=== PATIENT | female | born 1985 | race Hispanic/Latino ===

== ENCOUNTER 2023-10-13 11:19 | Emergency (ER) | payer OTHER ==
[~2023-10-13] VITALS: Ht 157.5 cm; Wt 64.4 kg
[2023-10-13] MEDS: METOCLOPRAMIDE 10 MG/2 ML VIAL IVP ONE (13:38)
[2023-10-13] MEDS: FAMOTIDINE 20MG VIAL IV ONE (13:41)
[2023-10-13 13:42] LABS: HEMATOCRIT 34.7 % (36-48); MEAN CORPUSCULAR HEMOGLOBIN 27.8 pg (27.0-33.0); MEAN CORPUSCULAR HGB CONC 33.4 g/dL (32.0-36.0); MEAN CORPUSCULAR VOLUME 83.2 fL (79-99); RED BLOOD CELL COUNT(AUTO) 4.17 MIL/uL (4.00-5.50); RED CELL DISTRIBUTION WIDTH 14.2 % (11.0-15.5); WHITE BLOOD COUNT (AUTO) 6.4 K/uL (4.8-10.8)
[2023-10-13 13:48] LABS: APPEARANCE,URINE CLOUDY (CLEAR); BILIRUBIN,URINE NEGATIVE (NEGATIVE); COLOR,URINE LIGHT-YELLOW (YELLOW); GLUCOSE, URINE (UA) NEGATIVE (NEGATIVE); KETONES,URINE NEGATIVE (NEGATIVE); LEUKOCYTE ESTERASE ,URINE 500 Leu/uL (NEGATIVE); NITRATE,URINE NEGATIVE (NEGATIVE); OCCULT BLOOD,URINE MODERATE (NEGATIVE); PROTEIN,URINE NEGATIVE (NEGATIVE); UROBILINOGEN,URINE 0.2 mg/dL (0.2-1.0)
[2023-10-13 13:51] LABS: CREATININE 0.7 mg/dL (0.5-1.5); POTASSIUM 3.6 mmol/L (3.5-5.1)
[2023-10-13] MEDS ORDERED: KETOROLAC 15MG/ML VIAL (15MG/ML) ONE (14:00)
[2023-10-13 14:05] LABS: SARS-CoV-2, RNA, NAAT NEGATIVE SARS CoV-2 (NEGATIVE)
[2023-10-13 14:09] LABS: INFLUENZA TYPE A Negative For Type A (NEGATIVE); INFLUENZA TYPE B Negative For Type B (NEGATIVE)
[2023-10-13] MEDS: KETOROLAC 30MG VIAL (30MG/ML) IVP ONE (14:10)
[2023-10-13 14:27] LABS: ADD UA MICROSCOPIC YES
[2023-10-13 14:30] LABS: BACTERIA,URINE FEW /HPF (None Seen); MUCUS,URINE RARE LPF (None Seen); OTHER CASTS, URINE 5 /LPF (None Seen); SQUAMOUS EPITHELIAL CELL,UR FEW /HPF (0-2); UNCLASSIFIED CRYSTAL 12 /HPF (None Seen); YEAST,URINE BUDDING RARE /HPF (None Seen)
[2023-10-13] MEDS ORDERED: PHEN-847 PO (14:43)
[2023-10-13] MEDS ORDERED: CEPH500B PO (14:43)
[2023-10-13] MEDS ORDERED: METO-296 PO (14:43)
[2023-10-13] MEDS ORDERED: PHENAZOPYRIDINE HCL 200 MG TABLET PO ONE (15:00)
[2023-10-13] MEDS ORDERED: CEFTRIAXONE 2GM VIAL IVPB ONE (15:00)
[2023-10-13 15:56] VITALS: BP 122/78; PULSE 77; RESP 18; O2SAT 98
== END 2023-10-13 16:00 | disposition home or self-care (01) ==
LOC: EDH 11:19
DX: N39.0 Urinary tract infection, site not specified (principal); G44.209 Tension-type headache, unspecified, not intractable; G43.909 Migraine, unspecified, not intractable, without status migrainosus; Z20.822 Contact with and (suspected) exposure to COVID-19
CPT/HCPCS: 99285; 96374; 70450; 96375; 87635; 80048; 85027; 87088; 87804 ×2; 81001; 36415; J3490; J2765; J1885

== ENCOUNTER 2025-01-22 07:08 | Emergency (ER) | payer OTHER ==
[~2025-01-22] VITALS: Ht 157.5 cm; Wt 67.1 kg
[~2025-01-22 07:08] MED LIST: CEPH500B PO; METO-296 PO; PHEN-847 PO
--- NOTE | 2025-01-22 07:25 | NUR ---
PENDING TEST RESULTS FOR CT EXAM.
[2025-01-22 07:47] LABS: BASOPHILS # (AUTO) 0.03 K/uL (0.00-0.20); BASOPHILS % (AUTO) 0.4 % (0.0-5.0); EOSINOPHILS # (AUTO) 0.09 K/uL (0.00-0.70); EOSINOPHILS % (AUTO) 1.2 % (0.0-8.0); HEMATOCRIT 32.8 % (36-48); IMMATURE GRANULOCYTE ABSOLUTE 0.02 K/uL (0-1); LYMPHOCYTES # (AUTO) 4.2 K/uL (1.0-4.8); LYMPHOCYTES % (AUTO) 57.4 % (21.0-51.0); MEAN CORPUSCULAR HEMOGLOBIN 26.8 pg (27.0-33.0); MEAN CORPUSCULAR HGB CONC 33.5 g/dL (32.0-36.0); MONOCYTES # (AUTO) 0.5 K/uL (0.1-1.0); MONOCYTES % (AUTO) 7.4 % (3.0-13.0); NEUTROPHILS # (AUTO) 2.4 K/uL (1.8-7.7); NEUTROPHILS % (AUTO) 33.3 % (40.0-77.0); PLATELET COUNT (AUTO) 266 K/uL (130-400); WHITE BLOOD COUNT (AUTO) 7.3 K/uL (4.8-10.8)
--- NOTE | 2025-01-22 07:49 | ERN ---
General Chief Complaint: Seizure Stated Complaint: SYNCOPE Time Seen by : 07:12 History of Present Illness Initial Comments 39-year-old female brought in by family from home for seizure-like activity. According to the patient, she was in her normal state of health. She is speaking with the daughter and she felt faint. The family reports that she rolled her eyes back and she started shaking. It lasted about 10 seconds. Her arms and legs were shaking and stiff. She did not regain consciousness. She had another episode lasting about 10 seconds of shaking. Afterwards the family reports that she was confused. The patient does not remember any of the event. She denies any chest pains or palpitations prior. She does report a history of syncope in the past. No seizure history. She denies any drug or alcohol abuse. She denies any recent head trauma. She reports she has a headache over the last day or so. She continues with a headache now. She does report she took an [id number] sleep supplement which she has taken before in the past without side effects. Allergies: Coded Allergies: No Known Allergies (Unverified Allergy, Unknown, 10/13/23) Home Meds Active Scripts Metoclopramide HCl (Reglan) 10 Mg Tablet, 10 MG PO QIDP PRN for HEADACHE, #40 TAB 2 Refills Prov:GAMALIEL FLORES Sr., MD 10/13/23 Phenazopyridine HCl (Pyridium) 200 Mg Tab, 100 MG PO TIDPC, #5 TAB 0 Refills TAKE WITH FOOD TO PREVENT STOMACH UPSET. Prov:GAMALIEL FLORES Sr., MD 10/13/23 Cephalexin Monohydrate (Keflex) 500 Mg Cap, 500 MG PO QID for 10 Days, #40 CAP 0 Refills Prov:GAMALIEL FLORES Sr., MD 10/13/23 Past Medical History Past Medical History: No Pertinent History, Migraines Past Surgical History: Other Surgical History Other: BREAST IMPLANTS AND TUMMY TUCK Female( History) LMP: January 19, 2025 ROS Dictation CONSTITUTIONAL: No chills, no fever, no weakness, no diaphoresis, no malaise. HEAD/FACE: No signs of trauma. EENT: No eye pain, no blurred vision, no tearing, no double vision, no ear pain, no ear discharge, no nose pain, no nasal congestion, no throat pain, no throat swelling, no mouth pain. RESPIRATORY: No cough, no orthopnea, no SOB, no stridor, no wheezing. CARDIOVASCULAR: No chest pain, no edema, no palpitations, no syncope. GASTROINTESTINAL/ABDOMINAL: No abdominal pain, no constipation, no diarrhea, no nausea, no vomiting. GENITOURINARY: No abnormal discharge, no dysuria, no frequent urination, no hematuria. No complaints of pain in the genitals. MUSCULOSKELETAL: No back pain, no gout, no joint pain, no joint swelling, no muscle pain, no muscle stiffness, no neck pain. INTEGUMENTARY: No change in color, no change in hair/nails, no dryness, no lesion, no lumps, no rash. NEUROLOGICAL/PSYCH: Headache and seizure-like activity HEMATOLOGIC/LYMPHATIC: Not anemic, no history of blood clots, no apparent bleeding, no bruising, glands not swollen. All Systems Negative, Except as Noted. Physical Exam Physical Exam Dictation VITAL SIGNS: Reviewed. GENERAL APPEARANCE: Alert, oriented x3, no acute distress. HEAD AND FACE: Non-traumatic. EYES: PERRL, pink conjunctivas, eyelid no trauma, anterior chamber clear. EARS: Pinnas intact and no signs of trauma or erythema. Ear canals clear and no discharge. TMs no erythema. NOSE: No discharge, no bleeding. OROPHARYNX: Mouth normal, teeth no caries, tongue pink. Pharynx clear, no erythema. Tonsils no exudates, no abscesses noted. Mucous membrane moist. NECK: Supple, non-tender, no thyromegaly, no masses, no JVD, no bruits. BREAST: Deferred. CHEST: No tenderness, no crepitus, no paradoxical movement, no retractions. LUNGS: Clear, well-ventilated, symmetric, no rales, no wheezing, no rhonchi, no stridor, good breath sounds bilaterally. HEART: Regular rate, regular rhythm, no murmur, no gallops. VASCULAR: No peripheral edema. ABDOMEN: Soft, positive bowel sounds, nondistended, no guarding, nontender, no rebound, no masses no hepatomegaly, no splenomegaly, no Porras's sign, no hernias. RECTAL: Deferred. GENITAL: Deferred. NEUROLOGICAL: Normal speech, gross motor function intact, gross sensory function intact. MUSCULOSKELETAL: Neck nontender, full range of motion, back nontender, full range of motion. EXTREMITIES: Nontender, full range of motion. SKIN: Color pink, dry, no turgor, no rash, no lacerations, no abrasions, no contusions. LYMPHATICS: Deferred. Results Laboratory and Microbiology Lab and Micro Result Laboratory Tests Test 01/22/25 07:35 01/22/25 09:04 White Blood Count 7.3 K/uL (4.8-10.8) Red Blood Count 4.10 MIL/uL (4.00-5.50) Hemoglobin 11.0 g/dL (12.0-16.0) L Hematocrit 32.8 % (36-48) L Mean Corpuscular Volume 80.0 fL (79-99) Mean Corpuscular Hemoglobin 26.8 pg (27.0-33.0) L Mean Corpuscular Hemoglobin Concent 33.5 g/dL (32.0-36.0) Red Cell Distribution Width 16.0 % (11.0-15.5) H Platelet Count 266 K/uL (130-400) Mean Platelet Volume 10.1 fL (7.5-10.5) Immature Granulocyte % (Auto) 0.3 % (0-1) Neutrophils (%) (Auto) 33.3 % (40.0-77.0) L Lymphocytes (%) (Auto) 57.4 % (21.0-51.0) H Monocytes (%) (Auto) 7.4 % (3.0-13.0) Eosinophils (%) (Auto) 1.2 % (0.0-8.0) Basophils (%) (Auto) 0.4 % (0.0-5.0) Neutrophils # (Auto) 2.4 K/uL (1.8-7.7) Lymphocytes # (Auto) 4.2 K/uL (1.0-4.8) Monocytes # (Auto) 0.5 K/uL (0.1-1.0) Eosinophils # (Auto) 0.09 K/uL (0.00-0.70) Basophils # (Auto) 0.03 K/uL (0.00-0.20) Absolute Immature Granulocyte (auto 0.02 K/uL (0-1) Nucleated Red Blood Cells 0.0 % (0.0-0.19) Sodium Level 139 mmol/L (136-145) Potassium Level 3.3 mmol/L (3.5-5.1) L Chloride Level 104 mmol/L (101-111) Carbon Dioxide Level 25 mmol/L (21-32) Blood Urea Nitrogen 11 mg/dL (7-18) Creatinine 0.7 mg/dL (0.5-1.0) Glomerular Filtration Rate Calc 113 mL/min (>90) Random Glucose 105 mg/dL (70-105) Total Calcium 8.2 mg/dL (8.5-10.1) L Total Creatine Kinase 57 U/L (21-232) Troponin I High Sensitivity < 4.0 ng/L (4-50) L Human Chorionic Gonadotropin, Quant 1 mIU/mL (0-5) Serum Alcohol < 3 mg/dL (0-10) Urine Color LIGHT-YELLOW (YELLOW) Urine Appearance CLEAR (CLEAR) Urine pH 6.0 (5.0-8.0) Urine Specific Plessis 1.011 (1.001-1.031) Urine Protein NEGATIVE mg/dL (NEGATIVE) Urine Glucose (UA) NEGATIVE mg/dL (NEGATIVE) Urine Ketones NEGATIVE mg/dL (NEGATIVE) Urine Occult Blood SMALL (NEGATIVE) H Urine Nitrate NEGATIVE (NEGATIVE) Urine Bilirubin NEGATIVE mg/dL (NEGATIVE) Urine Urobilinogen 0.2 mg/dL (0.2-1.0) Urine Leukocyte Esterase NEGATIVE Crow/uL Urine RBC 2-5 /HPF (0-1) H Urine WBC 0-1 /HPF (0-1) Urine Squamous Epithelial Cells FEW /HPF (0-2) Urine Bacteria RARE /HPF (None Seen) Urine Other Casts 3 /LPF (None Seen) Urine Opiates Screen NEGATIVE (NEGATIVE) Urine Barbiturates Screen NEGATIVE (NEGATIVE) Urine Phencyclidine Screen NEGATIVE (NEGATIVE) Urine Amphetamines Screen NEGATIVE (NEGATIVE) Urine Benzodiazepines Screen NEGATIVE (NEGATIVE) Urine Cocaine Screen NEGATIVE (NEGATIVE) Urine Marijuana (THC) Screen NEGATIVE (NEGATIVE) MDM CC: seizure like activity Historian: patient Comorbidities: none Limitations by social determinates of health: none Ddx: new onset seizure, head injury, electrolyte abnormality, syncope, arrythmia, etc. VSS Labs (independently ordered and interpreted by me): No leukocytosis, no anemia. Chemistries unremarkable. CK is normal. Troponin normal. HCG is unremarkable. Urinalysis unremarkable. Drug screen negative alcohol negative. CT head (independently ordered and interpreted by me): No acute abnormalities Treatment in ED: 1 L lactated Ringer's Based on the presentation the patient may have had one or two seizures, possibly postictal in between. No signs of drug abuse. No signs of head/brain abnormalities at this time. Patient likely needs a workup for new onset seizures. You do not have Neurology at this site, we will contact [facility] for transfer. Family updated agrees with the plan. I spoke with the neuro hospitalist in the hospitalist from [facility]. They accept the patient. Patient had no further seizures or seizure-like activity here in the ER. Transferred without any medications given. ED Course Orders Procedure Category Date Status Time Ct Head/Brain W/O CT 01/22/25 Resulted Contrast 07:16 Cardiac Panel LAB 01/22/25 Complete 07:16 Cbc With Differential LAB 01/22/25 Complete 07:16 Basic Metabolic Panel LAB 01/22/25 Complete 07:16 Hcg,Quantitative LAB 01/22/25 Complete 07:16 Urinalysis Profile LAB 01/22/25 Complete 07:16 Drug Screen Urine LAB 01/22/25 Complete 07:16 Alcohol, Blood LAB 01/22/25 Complete 07:16 12 Lead Ekg Tracing- EKG 01/22/25 Logged Technical 07:16 Lactated Ringers PHA 01/22/25 Complete 1000ml (Lactated 07:30 Current Medications Medications (Trade) Dose Ordered Sig/Sydni Route PRN Reason Start Time Stop Time Status Last Admin Dose Admin Lactated Ringer's 1,000 ml @ 0 mls/hr ONCE ONCE IV 01/22/25 07:30 01/22/25 07:31 DC 01/22/25 08:05 Vital Signs Date Time Temp Pulse Resp B/P (MAP) Pulse Ox O2 Delivery O2 Flow Rate FiO2 01/22/25 07:40 61 16 124/73 100 Room Air* 0 21 01/22/25 07:10 97.9 69 20 115/81 98 0 DX & DISP Disposition: Transfer ([facility] [place] Departure Impression: Primary Impression: New onset seizure Condition: Stable Referrals: DARYN PITTS (PCP) JOEL URIOSTEGUI DO January 22, 2025 07:49
[2025-01-22] MEDS: LACTATED RINGERS 1000ML 1,000 ML IV ONE (08:05)
[2025-01-22 08:06] LABS: ALCOHOL, BLOOD < 3 mg/dL (0-10)
[2025-01-22 08:08] LABS: CARBON DIOXIDE 25 mmol/L (21-32); CHLORIDE 104 mmol/L (101-111); CREATINE KINASE, TOTAL 57 U/L (21-232); CREATININE 0.7 mg/dL (0.5-1.0); GLOMERULAR FILTR. RATE CALC 113 mL/min (>90); GLUCOSE,RANDOM 105 mg/dL (70-105); HCG,QUANTITATIVE 1 mIU/mL (0-5); POTASSIUM 3.3 mmol/L (3.5-5.1); SODIUM SERUM 139 mmol/L (136-145); UREA NITROGEN, BLOOD 11 mg/dL (7-18)
--- NOTE | 2025-01-22 08:44 | HMCIMG ---
CT HEAD WITHOUT CONTRAST INDICATION: Syncope/seizure TECHNIQUE: Noncontrast axial helical CT images from the vertex through the skull base using 5 mm slice thickness without contrast material. CT was performed with one or more of the following dose reduction techniques: Automated exposure control, adjustment of the mA and/or kV according to patient size, or use of iterative reconstruction technique. COMPARISON: 10/13/2023 FINDINGS: The cerebral and cerebellar hemispheres are age-appropriate in appearance. No evidence for abnormal extra-axial fluid collections or masses. The ventricles and sulci are normal in size and configuration. No evidence for intracranial parenchymal, epidural, or subdural hemorrhage, mass effect or midline shift. The pino-white matter differentiation is well preserved. No secondary evidence to suggest acute ischemia. The brainstem and cerebellum appear normal. The visualized orbits appear unremarkable. The visible paranasal sinuses and mastoid air cells are clear. The calvarium appears normal. IMPRESSION: No acute intracranial process identified.
[2025-01-22 09:15] LABS: APPEARANCE,URINE CLEAR (CLEAR); BILIRUBIN,URINE NEGATIVE (NEGATIVE); COLOR,URINE LIGHT-YELLOW (YELLOW); GLUCOSE, URINE (UA) NEGATIVE (NEGATIVE); KETONES,URINE NEGATIVE (NEGATIVE); LEUKOCYTE ESTERASE ,URINE NEGATIVE Leu/uL (NEGATIVE); NITRATE,URINE NEGATIVE (NEGATIVE); OCCULT BLOOD,URINE SMALL (NEGATIVE); PROTEIN,URINE NEGATIVE (NEGATIVE); UROBILINOGEN,URINE 0.2 mg/dL (0.2-1.0)
[2025-01-22 09:20] LABS: AMPHET/METH SCREEN,URINE NEGATIVE (NEGATIVE); BARBITURATE SCREEN, URINE NEGATIVE (NEGATIVE); BENZODIAZEPINES SCREEN,URINE NEGATIVE (NEGATIVE); CANNABINOID SCREEN,URINE NEGATIVE (NEGATIVE); COCAINE SCREEN,URINE NEGATIVE (NEGATIVE); OPIATE SCREEN,URINE NEGATIVE (NEGATIVE); PHENCYCLIDINE SCREEN,URINE NEGATIVE (NEGATIVE)
[2025-01-22 09:21] LABS: ADD UA MICROSCOPIC YES
--- NOTE | 2025-01-22 09:25 | NUR ---
TRANSFER REQUEST FOR NEUROLOGY SERVICE PER OMAYRA CEJA RN
[2025-01-22 09:30] LABS: BACTERIA,URINE RARE /HPF (None Seen); MUCUS,URINE RARE LPF (None Seen); OTHER CASTS, URINE 3 /LPF (None Seen); SQUAMOUS EPITHELIAL CELL,UR FEW /HPF (0-2); WBC,URINE 0-1 /HPF (0-1)
--- NOTE | 2025-01-22 09:55 | NUR ---
TRANSFER CALL PLACE TO [facility] [place] [facility] [phone] SPOKE WITH TAWNYA INTAKE NURSE INFORMATION PROVIED WILL CALL BACK. OMAYRA FELIX
--- NOTE | 2025-01-22 11:40 | NUR ---
TRANSFER CENTER INTAKE NURSE CALL BACK WITH ACCEPTANCE UNDER DR CHAO JEFFRIES AT 1020 TO ER , PRIMARY NURSE TO CALL REPORT TO [phone] AND EMS WHEN READY. OMAYRA FELIX
--- NOTE | 2025-01-22 12:06 | NUR ---
REPORT GIVEN TO ISIDRO RENEE [place] [facility]
--- NOTE | 2025-01-22 12:12 | NUR ---
[facility] INFOR[facility] THE ER [facility] ER [facility]SFER.THEY CONFIRMED THE FAX ARRIVED.
[2025-01-22] MEDS: acetaMINOPHEN 500 MG TABLET PO ONE (13:51)
[2025-01-22 14:05] VITALS: BP 106/69; PULSE 65; RESP 14; TEMP 98.3; O2SAT 97
--- NOTE | 2025-01-22 14:15 | EKG ---
[facility] Test Date: 2025-01-22 Test Time: 07:46:45 Pat Name: REAGAN RABAGO Department: ED Room: Gender: F Director [employer]: [facility] : 1985 Requested By: JOEL URIOSTEGUI Order Number: [id number] Reading MD: Yesica Wright Measurements Intervals [place] Rate: 54 P: 68 WY: 204 QRS: 50 QRSD: 84 T: 32 QT: 459 QTc: 437 Interpretive Statements Sinus rhythm Borderline prolonged [place] interval No previous ECG available for comparison Electronically Signed On 01-23-2025 14:22:28 CDT by Yesica Wright Please click the below link to view image of tracing.
== END 2025-01-22 14:06 | disposition short-term general hospital (02) ==
LOC: EDH 07:08
DX: R56.9 Unspecified convulsions (principal); R10.2 Pelvic and perineal pain
CPT/HCPCS: 99285; 96360; 96361; 70450; 82550; 84484; 80048; 80305; 84702; 85025; 36415; 93005; 81001; J7120; 99284